=== PATIENT | male | born 1990 | race Caucasian/White ===

== ENCOUNTER 2017-11-28 12:06 | Emergency (ER) | payer OTHER, SELFPAY ==
[~2017-11-28] VITALS: Ht 172.7 cm; Wt 145.0 kg
[2017-11-28 14:03] VITALS: BP 138/77
== END 2017-11-28 16:10 | disposition home or self-care (01) ==
LOC: EMS 12:12
DX: S60.011A Contusion of right thumb without damage to nail, initial encounter (principal); V43.52XA Car driver injured in collision with other type car in traffic accident, initial encounter; Y93.89 Activity, other specified; Y92.89 Other specified places as the place of occurrence of the external cause; Y99.8 Other external cause status
CPT/HCPCS: 99282